=== PATIENT | male | born 1995 | race Caucasian/White ===

== ENCOUNTER 2022-11-10 08:37 | Emergency (ER) | payer OTHER, SELFPAY ==
[2022-11-10 08:38] VITALS: BP 132/72; PULSE 64; RESP 14; TEMP 36.4; O2SAT 98; BMI 22.6
--- NOTE | 2022-11-10 09:13 | EKG12_ITS ---
Test Reason : CP Blood Pressure : / mmHG Vent. Rate : 063 BPM Atrial Rate : 063 BPM P-R Int : 152 ms QRS Dur : 098 ms QT Int : 378 ms P-R-T Axes : 077 085 067 degrees QTc Int : 386 ms Normal sinus rhythm Normal ECG Confirmed by JV PEREZ, CARLIN ([id number]), subeditor KELLY COE ([id number]) on 11/11/2022 12:03:28 PM Referred By: MESHA/CLARIBEL Confirmed By:CARLIN CARIAS MD
--- NOTE | 2022-11-10 09:13 | RAD_ITS ---
STUDY: X-RAY - CERVICAL SPINE REASON FOR EXAM: Male, 27 years old. radiculopathy TECHNIQUE: 3 view(s) of the cervical spine were obtained. COMPARISON: None FINDINGS: Normal anterior atlantoaxial articulation. Normal odontoid process. Normal cervical lordosis. Normal vertebral bodies and endplates. Normal disc space heights. Normal visualized intervertebral neuroforamina. The soft tissue structures are unremarkable. RAD/Cerv Spine 2 or 3 Views IMPRESSION: Normal x-ray examination of the visualized cervical spine. Electronically Signed: Joe Norman MD at 10:25 EDT ,
--- NOTE | 2022-11-10 09:15 | NURSING ---
NO OLD EKGS
--- NOTE | 2022-11-10 09:16 | ED.VIS.CHEST ---
HPI History of Present Illness Chief Complaint: Chest Pain Informant: patient and parent Narrative Narrative: Presents here with mother evaluation intermittent left-sided chest pain aching past 10 to 12 days. Also reports intermittent left lower neck pain that radiates down his left arm into his pinky. [id number]. No heavy lifting or new activities. Denies history of similar. Currently denies any symptoms. Reported smokes marijuana every evening along with vaping nicotine. Occasional alcohol. Denies nausea or vomiting. Does have a PCP however not in the area per mother. Terminal grandfather [place] age of 43, maternal grandmother with heart disease young age also. Prior Similar Symptoms: No PFSH PFSH Medical History no medical history Allergy/AdvReac Type Severity Reaction Status Date / Time amoxicillin Allergy Hives Verified 11/10/22 08:38 Surgical History no surgical history Social History Smoking Status: Light Smoker (<10/day) ROS ROS ED Constitutional Constitutional ED: Denies chills, fever(s) or sweats Eyes Eyes: Denies change in vision ENT ENT ED: Denies dysphagia or sore throat Cardiovascular Cardiovascular: Reports chest pain; Denies leg edema, palpitations or racing heartbeat Respiratory/Chest Respiratory/Chest: Denies cough, dyspnea or dyspnea on exertion Gastrointestinal Gastrointestinal: Denies abdominal pain, diarrhea, nausea or vomiting Genitourinary Genitourinary ED: Denies dysuria, hematuria or urinary frequency Musculoskeletal Musculoskeletal: Denies back pain, extremity pain or neck pain Integumentary Denies rash or wounds Neurologic Neurologic: Reports paresthesias; Denies headache(s) or weakness EXAM Physical Exam Const Vital Signs: 11/10/22 08:38 11/10/22 10:40 Temperature 97.6 F L Temperature Source Temporal Pulse Rate 64 59 L Respiratory Rate 14 16 Blood Pressure 132/72 H 124/79 H Blood Pressure Mean 92 Pulse Ox 98 99 Oxygen Delivery Method Room Air Positive well nourished and well developed General Appearance ED: well developed and NAD HEENT Reports moist mucous membranes normocephalic and atraumatic Eyes PERRL, EOMs intact bilaterally and conjunctivae normal General Eye ED: Yes normal appearance of both eyes Neck no lymphadenopathy and supple Neck Narrative: Spurling's bilaterally General: Negative for tenderness Chest Wall Chest: Negative for tenderness Resp normal respiratory effort and normal air movement Effort and Inspection: symmetric chest movement; Negative for respiratory distress Cardio regular rate, regular rhythm and no murmurs Peripheral Pulses: pulses 2+ throughout GI normal to inspection, nondistended, normoactive bowel sounds and non-tender Palpation: Negative for guarding or rebound tenderness present Back/Spine no CVA tenderness and no thoracic nor lumbar tenderness Extremity normal to inspection General Extremety ED: Negative for edema or tenderness General Extremity: Negative for edema Neuro oriented x3, CN's II-XII intact bilaterally and no sensory deficits noted Neuro Narrative: Upper extremity strength equal and symmetric elbow flexion extension handgrip and AB duction. Sensorium / Orientation: awake and alert Skin no rashes or lesions noted and no wounds MDM MDM MDM Narrative Medical decision making narrative: Interventions / MDM: Differential diagnosis: Chest pain, cervical radiculopathy Diagnosis considered but do not suspect: ACS however EKG with no ischemic changes and negative cardiac marker. PE however PERC criteria negative. My EKG interpretation: Sinus rate of 63, no ST changes. Isolated T wave version aVL. Nonspecific. Imaging independently reviewed and interpreted by myself: 2 view chest: No acute process. 3 view cervical spine x-ray: No acute process. Also read by radiology. External documents reviewed: N/A Test considered but not ordered:N/A ED course: Atypical chest pains with cervical radiculopathy and CVA in the left. No reproducible symptoms at this time. Cardiac work-up initiated. Image studies of chest and cervical spine ordered. Cardiac work-up negative. Image studies negative. Reassured. Outpatient follow-up given as requested with a new physician. Return precaution discussed. All questions were answered. Re-evaluation: stable Disposition discussed with patient/family/significant other: Patient and mother Case discussed with consulting clinician: N/A This note was generated with [employer] dictation software. It may contain incorrect words, spelling, and punctuation that were not noted in checking the note before signing. Lab Data Labs: Laboratory Results - last 24 hr 11/10/22 09:21 WBC 4.9 RBC 5.46 Hgb 16.0 Hct 44.3 MCV 81.1 MCH 29.3 MCHC 36.1 H RDW Std Deviation 36.7 RDW Coeff of Jeet 12.6 Plt Count 223 MPV 9.2 Immature Gran % (Auto) 0.200 Neut % (Auto) 59.3 Lymph % (Auto) 31.1 [place] % (Auto) 7.6 Eos % (Auto) 1.0 Baso % (Auto) 0.8 Absolute Neuts (auto) 2.9 Absolute Lymphs (auto) 1.51 Nucleated RBC % 0 Sodium 137 Potassium 4.0 Chloride 108 H Carbon Dioxide 22.0 Anion Gap 7 BUN 17 Creatinine 0.80 Estim Creat Clear Calc 153.06 Est GFR (MDRD) Af Amer 149 Est GFR (MDRD) Non-Af 123 BUN/Creatinine Ratio 21.3 H Glucose 90 Calcium 8.8 Troponin I High Sens < 3 L Radiography Diagnostic Testing: Clinical Impression(s) from Imaging Studies Cervical Spine X-Ray 11/10/22 09:13 IMPRESSION: Normal x-ray examination of the visualized cervical spine. Electronically Signed: Joe Norman MD at 10:25 EDT , Chest X-Ray 11/10/22 09:35 IMPRESSION: Normal x-ray examination of the chest. Electronically Signed: Joe Norman MD at 10:25 EDT , Discharge Plan Triage Chief Complaint: Chest Pain ED Provider: Yobany Kearney Dx/Rx/DC Orders Clinical Impression: Cervical radiculopathy at C8, Cannabis dependence, Chest pain Instructions: ED Chest Pain, Uncertain Cause, ED Radiculopathy, Cervical Stand Alone Forms: Work / School Excuse Primary Care Provider: Lyndon Navarro Referrals: Erika Phoenix MD [Med Staff - Trauma Coordinator] - 3-5 Days Activity Restrictions/Additional Instructions: Your cardiac work-up negative, chest x-ray cervical spine x-ray negative. Atypical chest pains. You have symptoms of left C8 cervical radiculopathy. Monitor symptoms. Follow-up was given as an outpatient. Return if any worsens or recurrent symptoms. Disposition Disposition: Home, Self Care Discharge Date/Time: 11/10/22 10:49
[2022-11-10 09:31] LABS: Absolute Lymphocyte Count 1.51 X10^3/uL (0.83-4.51); Absolute Neutrophil Count 2.9 X10^3/uL (2.0-7.7); Basophil# 0.04 X10^3/uL; Basophil% 0.8 % (0-1); Eosinophil# 0.05 X10^3/uL; Hematocrit 44.3 % (40-54); Lymphocyte # 1.51 X10^3/ul (0.83-4.51); Lymphocyte % 31.1 % (19-41); Mean Corp Hgb Conc 36.1 g/dL (32-36); Mean Corpuscular Hgb 29.3 pg (27.0-32.0); Mean Corpuscular Volume 81.1 fL (80-94); Mean Platelet Vol. 9.2 fl (6.2-12.0); Monocyte# 0.37 X10^3/uL; Monocyte% 7.6 % (0-10); NRBC Flagged by Analyzer 0 % (0-5); Neutrophil # 2.87 X10^3/uL (2.7-7.7); Neutrophil % 59.3 % (47-70); Platelet Count 223 K/mm3 (150-450); RBC Distribution Width CV 12.6 % (11.6-14.6); RBC Distribution Width SD 36.7 fl (35.1-43.9); Red Blood Count 5.46 M/mm3 (4.6-6.2); White Blood Count 4.9 K/mm3 (4.4-11.0)
--- NOTE | 2022-11-10 09:35 | RAD_ITS ---
STUDY: X-RAY CHEST REASON FOR EXAM: Male, 27 years old. 10 day history of left-sided chest pain. TECHNIQUE: PA and lateral views of the chest. COMPARISON: None. FINDINGS: EKG electrodes are seen. The lungs are clear and expanded. There is no demonstrated pleural abnormality. Normal size heart. Normal mediastinum and flor. Normal visualized pulmonary arteries. Normal visualized aortic arch and descending thoracic aorta. Normal visualized thoracic spine. Normal visualized ribs, clavicles, and shoulders. There is no demonstrated abnormality of the visualized soft tissue structures of the upper abdomen. RAD/Chest PA and Lateral IMPRESSION: Normal x-ray examination of the chest. Electronically Signed: Joe Norman MD at 10:25 EDT ,
[2022-11-10 09:45] LABS: Anion Gap 7 (5-15); BUN 17 mg/dL (7-18); BUN/Creat Ratio 21.3 RATIO (10-20); Calcium,Total 8.8 mg/dL (8.5-10.1); Chloride 108 mmol/L (98-107); EST Glomerular Filtration Rate 123 mL/min (>60); Est Glom Filt Rate - Afr Amer 149 mL/min (>60); Estimated Creatinine Clearance 153.06 ml/min; Glucose 90 mg/dL (74-106); Sodium Level 137 mmol/L (136-145); Troponin-I HS < 3 pg/mL (3.0-78.0)
[2022-11-10 10:40] VITALS: BP 124/79; PULSE 59; RESP 16; O2SAT 99
== END 2022-11-10 10:49 | disposition home or self-care (01) ==
PROVIDERS: Emergency Provider Emergency Medicine; PCP Family Medicine; Visit Provider Emergency Medicine
DX: R07.89 Other chest pain (principal); F12.20 Cannabis dependence, uncomplicated; M54.12 Radiculopathy, cervical region; F17.290 Nicotine dependence, other tobacco product, uncomplicated; Z82.49 Family history of ischemic heart disease and other diseases of the circulatory system
CPT/HCPCS: 71046; 72040; 80048; 84484; 85025; 93005; 99283